=== PATIENT | female | born 1960 | race Caucasian/White ===

== ENCOUNTER 2023-03-26 14:30 | Outpatient (RCR) | payer BC, SELFPAY ==
--- NOTE | 2023-01-16 15:39 | HMH.PTOPEV ---
PT Outpatient Evaluation Rehab PT Outpatient Evaluation Start: 01/16/23 15:25 Freq: Status: Active Protocol: Document 01/16/23 15:25 SANCHEZ (Rec: 01/16/23 15:39 PHORARNOLD [id number]) E-signed By Joey Jarrett, PT Outpatient Therapy Subjective History Subjective History This is the initial PT eval for Evi Robbins, 62 yowf who presents with c/o L post hip, groin, and lateral thigh pain x ~ 1 yr. She reports long hx of sciatica, but this pain is in somewhat different area. She had x-ray and MRI performed at outside facility which show mild OA of the L hip and L2-L5 lumbar disc bulges. She reports no c/o numbness and tingling, but pain varies throughout the day . She is especially having trouble with stairs and sleeping. LEFS 40/80 Chief Complaint Pain Symptom Type Ache,Sharp Symptoms Relieved By Nothing Symptoms Aggravated By Walking Prior Functional Limitations None Current Functional Limitations Sleeping,Standing,Recreation Activity,Walking,Stairs Symptom Description Constant but Variable Level of pain today (0-10) 3 Pain scale - at its worst (0-10) 9 Hip/Knee Eval Gait Observation General Gait Pattern Observation No Deviations/Normal Assistive Device Assistive Devices None / NA Palpation Tenderness left Knee Palpation Overall Comment piriformis, SI, L lumbar paraspinals 2/4 Hip Palpation Findings Tenderness MMT Hip Flexion Strength Grade 4 Good Hip Abduction Strength Grade 4 Good Hip Adduction Strength Grade 5 Normal Hip Extension Strength Grade 4 Good Knee Extension Strength Grade 5 Normal Knee Flexion Strength Grade 5 Normal Special Tests Hip Bowstring (Cram) Test Negative Left,Negative Right Hip Piriformis Test Negative Left,Negative Right Sciatic Nerve Tension Test Negative Right,Positive Left Hip Scouring (Quadrant) Test Negative Left,Negative Right Outpatient Therapy Assessment Impairments Problems/Impairmments Palpation Tenderness,Impaired Strength,Impaired Endurance, Impaired Walking,Impaired Standing,Impaired Household Care,Impaired Stair Climbing, Impaired Incline Stepping, Impaired Stepping on Uneven Surface,Impaired Bending, Impaired Recreational Activities,Subjective C/O Pain ,Impaired Self Care/Self Management Prognosis Rehab Potential Good Clinical Impression Consistent with Diagnosis Yes Short Term Goals Number of Weeks 2 Decreased Palpation Tenderness Yes: 1/4 post L hip and lumbar paraspinals Increase Strength Yes: L LE 4+/5 throughout Increase Ability to Walk Yes: > 30 min without pain Decrease Subjective C/O Pain Yes: 7/10 at worst Patient to be Ind w/ HEP Yes [facility]pc Goals Number of Weeks 4 Decreased Palpation Tenderness Yes: 0/4 L post hip and lumbar paraspinals Increase Strength Yes: 5/5 L LE throughout Improve Ability For Household Care Yes: > 30 min without pain Improve Ability to Climb Stairs Yes: without pain Decrease Subjective C/O Pain Yes: 4/10 at worst Patient to be Ind w/ Advanced HEP Yes Outpatient Therapy Plan of Care Treatment Plan May Include Therapeutic Exercise Including Home Yes Exercise Program Manual Therapy Techniques Yes Neuromuscular Re-education Yes Therapeutic Activities to Return to Yes Previous Functional/Work Level ADL/Self Care Education Yes Dry Needling Yes Thermal Modalities Yes Electrical Stimulation Yes Ultrasound/Phonophoresis Yes Iontophoresis Yes Orthotics/Bracing/Splinting Yes Massage Yes Eval/Re-Eval Yes Frequency Times per week 2 Duration Number of Weeks 4 Addendums This patient is a candidate for social No or vocational rehab? Patient/Guardian verbally acknowledges Yes understanding of treatment program and consents to further treatment? Patient/Guardian verbally acknowledges Yes understanding of diagnosis, prognosis and goals for treatment? G -code Required No Eval Complexity PT Charges 96063 - High Complexity Shoulder/Elbow Eval Shoulder Objective Measurements Elbow Objective Measurements PHYSICIAN CERTIFICATION: I certify the specified therapy services for Evi Robbins are required, authorized, and reviewed every 30 days.
--- NOTE | 2023-02-20 09:11 | HMH.RHREAS ---
Rehab Reassessment Rehab OP Re-assessment Start: 01/16/23 15:25 Freq: Status: Active Protocol: Document 02/20/23 09:06 HORACIOEddieARNOLD (Rec: 02/20/23 09:11 PHOYAZMIN [id number]) E-signed By Joey Jarrett, PT Rehab Re-assessment Subjective Subjective Pt reports less pain overall, but pain in the L LE this morning. Pain currently 4/10, at worst 8/10. Objective Objective Notes MMT L LE: HIP ABD 4+/5, HIP EXT. 4+/5, HIP FLEX 4+/5, otherwise 5/5. TTP: 06/11 B lumbar paraspinals and L piriformis/SI Ambulation: Able to ambulate ~ 1 hr without increased pain. Prolonged standing continues to increase pain. Assessment Progress Assessment Progressing as Expected Assessment Notes Pt has shown overall improvement in symptoms, but continued intermittent L LE radiculopathy. She continues to have difficutly with prolonged standign and household care. She continues to need skilled intervention to return to prior level of function. Patient goals met ST,2,3,[address] LT,2,3,4,5,6 Plan Plan Continue per initial POC. Frequency of Therapy 2 x/wk Duration of therapy 4 wks Time and Billing Re-Eval Time 13 Re-Eval Billing Units 1 PHYSICIAN CERTIFICATION: I certify the specified therapy services for Evi Robbins are required, authorized, and reviewed every 30 days.
== END 2023-03-26 15:45 | disposition home or self-care (01) ==
LOC: PT 14:30
PROVIDERS: PCP Family Medicine; Visit Provider Family Medicine
DX: M25.552 Pain in left hip (principal)
CPT/HCPCS: 97010; 97014; 97110; 97140; 97163; 97164; G0283

== ENCOUNTER 2023-08-27 09:00 | Outpatient (RCR) | payer BC, OTHER, SELFPAY ==
--- NOTE | 2023-07-09 11:50 | HMH.PTOPEV ---
PT Outpatient Evaluation Rehab PT Outpatient Evaluation Start: 07/09/23 09:48 Freq: Status: Active Protocol: Document 07/09/23 09:54 ИВАН (Rec: 07/09/23 11:50 ИВАН [id number]) E-signed By Dionte Yoo, PT Outpatient Therapy Subjective History Subjective History Patient is a 62 year old female presenting to outpatient PT with reports of chronic cervical spine pain with associated BUE radicular symptoms. Symptoms of insidious onset starting approx 4 years ago. No recent imaging to report. Radicular symptoms consistent with C 7/ 8 dermatomes. Radicular symtpoms intermittent R>L. Comorbidities include hx of PVC, THN, HL, hysterectomy, Appendectomy and cataract surgery. New diagnosis of cancer in past 12 No months? Chief Complaint Pain,Stiff,Paresthesia, Weakness Symptom Type Ache,Sharp,Dull,Numbness, Tingling Symptoms Relieved By Rest/Positioning Symptoms Aggravated By Sitting,Physical Activity, Lifting Prior Functional Limitations None Current Functional Limitations Reaching,Lifting,Housework, Sleeping,Recreation Activity Symptom Description Constant but Variable Level of pain today (0-10) 2 Pain scale - at its best (0-10) 1 Pain scale - at its worst (0-10) 8 Cervical Eval Palpation Cervical Muscles R CT Junction,L CT Junction,R Upper Trapezius,L Upper Trapezius Posture Head/C-Spine Posture Sitting Position C-Spine Flattened Head/C-Spine Posture Standing Position C-Spine Flattened Flexibility Deficits Upper Trapezius Muscle Length (R) Moderate Tightness,(L) Moderate Tightness Pectoralis Minor Muscle Length (R) Moderate Tightness,(L) Moderate Tightness Passive Joint Mobility Cervical PIVM Dec: R C5/6 L C5/6 R C6/7 L C6/7 R C7/T1 L C7/T1 WNL: R OA L OA R AA L AA R C2/3 L C2/3 R C3/4 L C3/4 R C4/5 L C4/5 AROM Cervical Spine Extension Active Range of 46 Motion (degrees) Cervical Spine Flexion Active Range of 48 Motion (degrees) Cervical Spine Right Lateral Flexion 28 Active Range of Motion (degrees) Cervical Spine Left Lateral Flexion 36 Active Range of Motion (degrees) Cervical Spine Right Rotation Active 47 Range of Motion (degrees) Cervical Spine Left Rotation Active 48 Range of Motion (degrees) MMT Bilateral Deltoid (C5) 5 Normal Biceps Brachii Strength Grade 5 Normal Wrist Extension Strength Grade 5 Normal Triceps Brachii Strength Grade 5 Normal Wrist Flexion Strength Grade 4- Good- Finger Abduction Strength Grade 4- Good- Altered Sensation Upper extremity Dermatomes C7,C8 Comment pain/NT intermittent Special Test C-Spine Foraminal Compression (Spurling) Positive Left Test C-Spine Foraminal Distraction Test Positive Neck Disability Index Neck Disability Index Section 1: Pain Intensity The pain is moderate at the moment Section 2: Personal Care (washing, I can look after myself dressing, etc.) normally without causing extra pain Section 3: Lifting Pain prevents me from lifting heavy weights, but I can manage light to Section 4: Reading I can read as much as I want with moderate pain in my neck Section 5: Headaches I have moderate headaches, which come frequently Section 6: Concentration I can concentrate fully when I want to with no difficulty Section 7: Work I can only do my usual work, but no more Section 8: Driving I can drive my car as long as I want with slight pain in my neck Section 9: Sleeping My sleep is greatly disturbed (3-5 hrs sleepless) Section 10: Recreation I am able to engage in most, but not all of my usual recreation NDI Score 18 Outpatient Therapy Assessment Impairments Problems/Impairmments Palpation Tenderness,Impaired Range of Motion,Impaired Strength,Impaired Driving, Impaired Lifting,Impaired Household Care,Impaired Recreational Activities, Impaired Work Activities, Subjective C/O Pain Prognosis Rehab Potential Good Clinical Impression Consistent with Diagnosis Yes Short Term Goals Number of Weeks 2 Decrease Subjective C/O Pain Yes: 5/10 at worst Patient to be Ind w/ HEP Yes [employer] Goals Number of Weeks 4-96 Decreased Palpation Tenderness Yes: 1/4 Increase Range of Motion Yes: WNL Increase Strength Yes: BUE 5/5 grossly Restore Ability to Lift Objects to Yes: 20 lb without difficulty Shoulder Level Restore Ability to Lift Objects Overhead Yes: Improve Ability For Household Care Yes Improve Neck Disability Index Score Yes: <10 Decrease Subjective C/O Pain Yes: 2/10 at worst Outpatient Therapy Plan of Care Treatment Plan May Include Therapeutic Exercise Including Home Yes Exercise Program Manual Therapy Techniques Yes Neuromuscular Re-education Yes Therapeutic Activities to Return to Yes Previous Functional/Work Level Gait Training Yes ADL/Self Care Education Yes Mechanical Traction Yes Dry Needling Yes Thermal Modalities Yes Electrical Stimulation Yes Ultrasound/Phonophoresis Yes Iontophoresis Yes Vasopneumatic Compression Pump Yes Massage Yes Eval/Re-Eval Yes Frequency Times per week 2 Duration Number of Weeks 4-6 Addendums This patient is a candidate for social No or vocational rehab? Patient/Guardian verbally acknowledges Yes understanding of treatment program and consents to further treatment? Patient/Guardian verbally acknowledges Yes understanding of diagnosis, prognosis and goals for treatment? Shoulder/Elbow Eval Shoulder Objective Measurements Elbow Objective Measurements PHYSICIAN CERTIFICATION: I certify the specified therapy services for Evi Robbins are required, authorized, and reviewed every 30 days.
--- NOTE | 2023-08-07 08:43 | HMH.RHREAS ---
Rehab Reassessment Rehab OP Re-assessment Start: 07/09/23 09:48 Freq: Status: Active Protocol: Document 08/07/23 08:03 ИВАН (Rec: 08/07/23 08:43 ИВАН [id number]) E-signed By Dionte Yoo, PT Neck Disability Index Neck Disability Index Section 1: Pain Intensity The pain is very mild at moment Section 2: Personal Care (washing, I can look after myself dressing, etc.) normally but it causes extra pain Section 3: Lifting Pain prevents me from lifting heavy weights, but I can manage light to Section 4: Reading I can read as much as I want with moderate pain in my neck Section 5: Headaches I have moderate headaches, which come frequently Section 6: Concentration I can concentrate fully when I want to with slight difficulty Section 7: Work I can do most of my usual work , but no more Section 8: Driving I can drive my car as long as I want with moderate pain in my neck Section 9: Sleeping My sleep is greatly disturbed (3-5 hrs sleepless) Section 10: Recreation I am able to engage in most, but not all of my usual recreation NDI Score 21 Rehab Re-assessment Subjective Subjective Patient reports 30% improvement since start of care. Objective Objective Notes CROM: flx 56, ext 48; SBr 32; SBl 28; Rr50; Rl 49 Myotomes: WNL Pain: 2/10 currently; 9/10 at worst over past week Neuro: pain/NT to L T1 dermatome Assessment Progress Assessment Progressing as Expected Assessment Notes Patient has been seen for 9 treatment visits to date. Overall persistent, but centralized radicular symptoms of LUE. Increased symptoms with peripheral nerve flossing . Some relief noted with traction. Patient would benefit from continuing with skilled PT interventions in order to address functional limitations with all reaching/ lifting activities. Patient goals met STG 2 Goals Not Met All others Revised Goals NA Plan Plan Continue with current POC. PT suggests follow-up with MD to request further imaging while continuing PT. Frequency of Therapy 2x/week Duration of therapy 4 weeks. Time and Billing Re-Eval Time 16 Re-Eval Billing Units 1 PHYSICIAN CERTIFICATION: I certify the specified therapy services for Evi Robbins are required, authorized, and reviewed every 30 days.
== END 2023-08-27 10:20 | disposition home or self-care (01) ==
LOC: PT 09:00
PROVIDERS: PCP Family Medicine; Visit Provider Family Medicine
DX: M54.2 Cervicalgia (principal)
CPT/HCPCS: 20560; 97010; 97012; 97014; 97035; 97110; 97140; 97163; 97164; 97530; 97535; G0283

== ENCOUNTER 2024-01-14 08:54 | Outpatient (CLI) | payer BC, OTHER, SELFPAY ==
--- NOTE | 2024-01-14 09:03 | XR_ITS ---
FINAL REPORT TECHNIQUE: Bone densitometry calculations of the lumbar spine and left hip were obtained. CLINICAL HISTORY: SCREENING FINDINGS: Using L1-4, the bone mineral density of the spine is 1.29 g/cm2, corresponding to T-score of 2.3. Using the left hip, the bone mineral density of the femoral neck is 1.3 g/cm2, corresponding to a T-score of 3 1. Using the right hip, the bone mineral density of the femoral neck is 1.3 g/cm2, corresponding to a T-score of 3.6. NOTE: T-score: Standard deviation compared with peak bone mass of young adult mean. *Following the recommendations of the International Society of Bone densitometry, classification of hip BMD is based on the lower of two T-scores; total hip or femoral neck. IMPRESSION: Normal bone mineral density of the lumbar spine and hip. Reviewed, Interpreted and Dictated by Devin Montalvo III, MD Transcribed by Jessica Santillan Authenticated and [facility]
== END 2024-01-14 23:59 | disposition home or self-care (01) ==
LOC: RAD 08:59
PROVIDERS: PCP Family Medicine; Visit Provider Family Medicine
DX: Z13.820 Encounter for screening for osteoporosis (principal)
CPT/HCPCS: 77080

== ENCOUNTER 2024-04-15 08:00 | Outpatient (RCR) | payer BC, OTHER, SELFPAY | END 2024-04-15 23:59 | disposition home or self-care (01) | LOC: PT 08:00 | PROVIDERS: Visit Provider Orthopaedic Surgery | DX: M48.02 Spinal stenosis, cervical region (principal) | CPT/HCPCS: 97012; 97014; 97110; 97140; 97163; G0283 ==

== ENCOUNTER 2024-08-26 07:46 | Outpatient (CLI) | payer BC, SELFPAY ==
[2024-08-26 09:04] LABS: Alanine Aminotransferase 23 U/L (12-78); Albumin Level 4.3 g/dl (3.5-5.0); Albumin/Globulin Ratio 1.9 (1.1-1.8); Alkaline Phosphatase 48 U/L (38-126); Anion Gap 6.9 mEq/L (5-15); Aspartate Amino Transferase 31 U/L (14-36); Bilirubin,Total 0.6 mg/dl (0.2-1.3); Blood Urea Nitrogen 22 mg/dl (7-17); Calcium 9.2 mg/dl (8.4-10.2); Carbon Dioxide 33 mmol/L (22.0-30.0); Chloride 101 mmol/L (98-107); Chol/HDL Ratio 3.7 (1-3.5); Cholesterol 173 mg/dl (140-200); Estimated Glomerular Filt Rate 101 ml/min (>60); GFR (African American) 122 ML/MIN (>60); Globulin 2.3 g/dL (1.3-3.2); Glucose 81 mg/dl (74-100); HDL Cholesterol 47 mg/dl (40-60); Potassium 3.9 mmoL/L (3.5-5.1); Sodium 137 mmol/L (136-145); Total Protein,Serum 6.6 g/dl (6.3-8.2); Triglycerides 98 mg/dl (30-150); VLDL Cholesterol 20 mg/dL (0-40)
[2024-08-26 09:20] LABS: Direct LDL Cholesterol 89.76 mg/dL (100-129)
== END 2024-08-26 23:59 | disposition home or self-care (01) ==
LOC: LAB 07:47
PROVIDERS: PCP Family Medicine; Visit Provider Family Medicine
DX: I10 Essential (primary) hypertension (principal); E78.5 Hyperlipidemia, unspecified
CPT/HCPCS: 36415; 80053; 80061